=== PATIENT | male | born 1965 | race Caucasian/White ===

== ENCOUNTER 2016-05-08 13:31 | Emergency (ER) | payer MEDICAID ==
--- NOTE | 2016-05-08 13:42 | CPEKG ---
Heart Rate: 97 RR Interval: 619 P-R Interval: 148 QRSD Interval: 80 QT Interval: 340 QTC Interval: 432 P Parlin: 77 QRS Parlin: 39 T Wave Parlin: -35 EKG Severity - ABNORMAL ECG - EKG Impression: SINUS RHYTHM EKG Impression: NONSPECIFIC T ABNORMALITIES, INFERIOR LEADS Electronically Signed By: Mayra Wright 08-May-2016 14:01:35
--- NOTE | 2016-05-08 13:56 | EDPHY ---
H & P Time Seen by Provider: 05/08/16 13:38 HPI/ROS: CHIEF COMPLAINT: Fatigue, chest pain, irregular heart rate HISTORY OF PRESENT ILLNESS: This is a 50-year-old male who presents with fatigue and left-sided chest pain. The chest pain occurred yesterday around 6: 00 p.m. while he was sitting in his truck after work. He describes it as a stabbing sensation that was intermittent. Overall it lasted about 2 hours. He took an aspirin at the time. The pain has not returned. He has had brief episodes of similar pain in the past and has not thought much about them. Forseveral years he has been aware of an occasional irregular heart rate, an awareness either of a dropped beat or an extra beat. He is not aware of an abnormal heartbeat right now. He does have a feeling of fatigue today. He does not feel short of breath. He has not had any recent change in his exercise tolerance. He has not seen a doctor for 6 or 7 years. When he was last examined he was told that he has high blood pressure. He did not do anything about with this information and is not on any medications. He does not know what his cholesterol level is but was once told that it was slightly high. He chews tobacco. His father has atrial fibrillation, no known coronary artery disease. REVIEW OF SYSTEMS: A ten point review of systems was performed and is negative with the exception of the items mentioned in the HPI. Upper respiratory infection about a month ago. 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 Social History: He is an alcoholic in recovery. He does not smoke cigarettes. He does not use illicit drugs. He chews tobacco. He is working at [employer]. He has worked as a chef & owner in the past Smoking Status: Never smoked Physical Exam: General Appearance: Alert. Vital signs reviewed. Heart rate 109, blood pressure 143/100 at triage. Eyes: Pupils equal and round, no conjunctival injection, no discharge. Anicteric. ENT, Mouth: Mucous membranes are moist, no oropharyngeal erythema or edema. Neck: No lymphadenopathy, supple. No jugular venous distention. Respiratory: Lungs are clear to auscultation; no wheezes, rales, or rhonchi. Cardiovascular: Heart rate in the high 80s at the time of my examination. When he moves around his heart rate does elevate to just over 100. No murmur, rub, or gallop. Gastrointestinal: Abdomen is soft and nontender, no masses or organomegaly, bowel sounds normal. Skin: Warm and dry, no rashes on exposed skin, normal color. Back: Nontender to palpation over the thoracolumbar spine. No CVAT. Extremities: No lower extremity edema, no calf tenderness or swelling. Neurological: Alert and oriented. Moving all four extremities easily and equally. Psychiatric: Normal affect. Constitutional: Initial Vital Signs Temperature (C) 36.6 C 05/08/16 13:31 Heart Rate 109 H 05/08/16 13:31 Respiratory Rate 18 05/08/16 13:31 Blood Pressure 143/100 H 05/08/16 13:31 O2 Sat (%) 96 05/08/16 13:31 O2 Delivery Mode Room Air Allergies/Adverse Reactions: No Known Allergies Allergy (Unverified 05/08/16 13:34) Home Medications: Medication Instructions Recorded NK [No Known Home Meds] 05/08/16 Medical Decision Making - Diagnostics EKG Interpretation: 12 lead EKG is interpreted in Trace master View by emergency department physician. No acute ischemic changes. Sinus rhythm with a rate of 97. Imaging: Two-view chest x-ray reviewed by me in PACs. No acute pulmonary disease. ED Course/Re-evaluation: Aspirin 324 mg given shortly after arrival. EKG reviewed shortly after his arrival. No acute ischemic changes. At the time of my evaluation he is not currently experiencing chest pain. I have not seen any ectopy on the patient monitor. He is hypertensive and I suspect that he has chronic hypertension based upon the fact that he was told years back that is blood pressure was high. His HEART score is 2. EKG, chest x-ray, CBC, chemistries, troponin, and D-dimer reviewed and all negative/normal. He has been hypertensive while in the emergency department. He has not experienced chest pain. He denies shortness of breath, headache, or any symptoms related to hypertension. He is not encephalopathic or altered in any way. The chest pain that he experienced occurred yesterday. It does not sound typical for an acute coronary syndrome. He is at low risk for an adverse cardiac event in the near future but certainly needs close follow-up. I do not feel that hospitalization is needed. There is nothing to suggest infection such as pneumonia. I do not suspect pulmonary embolism and he has a negative D- dimer. He plans to follow up at [facility]. He understands that he has been persistently hypertensive and that this needs to be addressed. He plans to make an appointment within the week. We discussed the danger signs that should prompt him to be re-evaluated. Differential Diagnosis: Chest pain including but not limited to myocardial ischemia, pulmonary embolus, chest wall pain, pleural inflammation and pulmonary infectious causes. - Data Points Laboratory Results: Laboratory Results 05/08/16 13:40 05/08/16 13:40 Medications Given: Discontinued Medications Aspirin (Aspirin) 324 mg PO EDNOW ONE Stop: 05/08/16 14:00 Last Admin: 05/08/16 14:09 Dose: 324 mg Departure - Departure Disposition: Home, Routine, Self-Care Clinical Impression: Chest pain, Hypertension Condition: Good Instructions: Chest Pain (ED), Hypertension (ED) Additional Instructions: The primary care doctor that is psychologist personnel today for the emergency department works at [facility]. As we discussed, [facility] would be a good place for you to get your primary care. Call them tomorrow and see if he can register is a patient. I am providing their number. As we discussed, check your blood pressure at home or at work. Your blood pressures in the emergency department were high today. Your lowest blood pressure here today was 139/98. You need to have this followed up--hopefully within the next week. I am referring you to Dr. Flor, your father's cargo operations agent. If you develop chest pain again or if you begin to feel an irregular heartbeat that persists you should return to the emergency department immediately for re- evaluation. Referrals: Nino Flor MD [Medical Doctor] - As per Instructions [facility] [Outside] - As per Instructions
[2016-05-08] MEDS ORDERED: ASPIRIN 81 MG CHEWABLE TAB PO ONE (13:59)
[2016-05-08 14:05] LABS: % IMMATURE GRANULYOCYTES 0.5 % (0.0-1.1); ABSOLUTE IMMATURE GRANULOCYTES 0.04 10^3/uL (0.00-0.10); ADD DIFF? NO; ADD MORPH? NO; ADD SCAN? NO; ATYPICAL LYMPHOCYTE FLAG 20 (0-99); FRAGMENT RBC FLAG 0 (0-99); HEMATOCRIT 52.2 % (40.0-51.0); HEMOGLOBIN 17.8 g/dL (13.7-17.5); LEFT SHIFT FLG 0 (0-99); LIPEMIA HEMOLYSIS FLAG 90 (0-99); MEAN CELL HEMOGLOBIN CONCENTR. 34.1 g/dL (32.4-36.7); MEAN CELL VOLUME 90.9 fL (81.5-99.8); MEAN PLATELET VOLUME 9.5 fL (8.7-11.7); PLATELET CLUMPS FLAG 20 (0-99); PLATELET COUNT 180 10^3/uL (150-400); RED BLOOD CELL COUNT 5.74 10^6/uL (4.40-6.38); RED CELL DISTRIBUTION WIDTH 11.9 % (11.5-15.2)
[2016-05-08 14:12] LABS: ANION GAP 15 mEq/L (8-16); CALCIUM 10.2 mg/dL (8.5-10.4); CARBON DIOXIDE 28 mEq/l (22-31); CHLORIDE 101 mEq/L (97-110); CREATININE 0.9 mg/dL (0.7-1.3); GLOMERULAR FILTRATION RATE > 60; GLUCOSE 101 mg/dL (70-100); POTASSIUM 3.8 mEq/L (3.5-5.2); SODIUM 144 mEq/L (134-144)
[2016-05-08 14:23] LABS: TROPONIN I < 0.012 ng/mL (0-0.034)
--- NOTE | 2016-05-08 14:23 | DX ---
PA and lateral chest. Clinical History: Chest Pain Comparison Study: None available. Findings: The lungs are clear. No pleural disease identified. Heart size is normal. Visualized osseous structures appear normal. Impression: Normal chest.
[2016-05-08 15:49] VITALS: BP 148/105; PULSE 80; RESP 16; TEMP 98.4; O2SAT 96
== END 2016-05-08 15:48 | disposition home or self-care (01) ==
DX: R07.9 Chest pain, unspecified (principal); I10 Essential (primary) hypertension; F17.220 Nicotine dependence, chewing tobacco, uncomplicated